=== PATIENT | female | born 1940 | race Caucasian/White ===

== ENCOUNTER → 2017-07-06 | Outpatient (CLI) | payer OTHER ==
[~2017-07-06] MED LIST: ATV5 PO; ESCI10TA17 PO; PRLSRUNK PO
[2017-07-06 13:07] LABS: BLOOD UREA NITROGEN 15 mg/dl (7-18); CALCIUM 9.4 mg/dl (8.5-10.1); CARBON DIOXIDE 31 mmol/L (21-32); CHLORIDE 103 mmol/L (98-107); CHOLESTEROL 184 mg/dl (0-200); CREATININE 0.87 mg/dl (0.60-1.20); GLUCOSE 100 mg/dl (70-99); POTASSIUM 4.2 mmol/L (3.5-5.1); SODIUM 139 mmol/L (136-145)
[2017-07-06 13:11] LABS: HDL CHOLESTEROL 46 mg/dl; LDL CHOLESTEROL CALCULATED 100 mg/dl; TRIGLYCERIDES 189 mg/dl (0-150); VERY LOW DENSITY LIPOPROT CALC 38 mg/dl
== END | disposition home or self-care (01) ==
LOC: C.LABPVFM 07:55
PROVIDERS: ATTEND Nurse Practitioner
DX: E78.5 Hyperlipidemia, unspecified (principal); I25.10 Atherosclerotic heart disease of native coronary artery without angina pectoris; E55.9 Vitamin D deficiency, unspecified

== ENCOUNTER → 2018-02-12 | Outpatient (CLI) | payer OTHER ==
[2018-02-12 17:32] LABS: BLOOD UREA NITROGEN 17 mg/dl (7-18); CALCIUM 9.2 mg/dl (8.5-10.1); CARBON DIOXIDE 31 mmol/L (21-32); CREATININE 0.95 mg/dl (0.60-1.20); GLUCOSE 122 mg/dl (70-99); POTASSIUM 3.9 mmol/L (3.5-5.1); SODIUM 137 mmol/L (136-145)
== END | disposition home or self-care (01) ==
LOC: C.LABPVFM 14:18
PROVIDERS: ATTEND Nurse Practitioner
DX: E55.9 Vitamin D deficiency, unspecified (principal); I25.10 Atherosclerotic heart disease of native coronary artery without angina pectoris

== ENCOUNTER 2019-12-19 17:17 | Observation (INO) ==
[2019-12-19] MEDS ORDERED: SODIUM CHLORIDE 0.9% 500 ML IV ONE (18:10)
--- NOTE | 2019-12-19 18:55 | XRay Report ---
SINGLE VIEW CHEST CLINICAL HISTORY: Strokelike symptoms. FINDINGS: An AP, portable, upright chest radiograph is compared to study dated 10/11/2009. The examina tion is degraded by portable technique, apical lordotic positioning, and patient rotation. The heart is top normal for projection noting atherosclerotic calcification of the thoracic aorta. The pulmonar y vasculature is noncongested. There is bibasilar scarring/atelectasis. No airspace consolidation or large pleural effusion is identified. A large calcified granuloma in the left lung is unchanged from previous. No pneumothorax is seen. The skeletal structures are osteopenic. The bony thorax is grossly intact. IMPRESSION: No active disease in the chest. ACT 112: Negative or not required by law. Electronically signed by: Tristan Lara M.D. 12/19/2019 6:54 PM
[2019-12-19 19:15] LABS: Basophils # (auto) 0.03 K/uL (0-0.2); Basophils % (auto) 0.4 %; Eosinophils # (auto) 0.12 K/uL (0-0.5); Eosinophils % (auto) 1.7 %; Hematocrit (blood only) 41.5 % (37-47); Hemoglobin 13.8 g/dL (12.0-16.0); Immature Granulocytes # (auto) 0.01 K/uL (0.00-0.02); Immature Granulocytes % (auto) 0.1 %; Lymphocytes # (auto) 2.31 K/uL (1.2-3.4); Lymphocytes % (auto) 31.9 %; Mean Corpuscular Hemoglobin 29.6 pg (25-34); Mean Corpuscular Hgb Conc 33.3 g/dL (32-36); Mean Corpuscular Volume 89.1 fL (80-100); Mean Platelet Volume 10.4 fL (7.4-10.4); Monocytes # (auto) 0.58 K/uL (0.11-0.59); Neutrophils # (auto) 4.19 K/uL (1.4-6.5); Neutrophils % (auto) 57.9 %; Platelet Count 264 K/uL (130-400); RDW Coefficient of Variation 12.9 % (11.5-14.5); RDW Standard Deviation 41.3 fL (36.4-46.3); Red Blood Count 4.66 M/uL (4.2-5.4); White Blood Count 7.24 K/uL (4.8-10.8)
[2019-12-19 19:25] LABS: INR 1.1 (0.9-1.1); Partial Thromboplastin Ratio 0.9; Partial Thromboplastin Time 23.8 Seconds (21.0-31.0); Prothrombin Time 10.9 Seconds (9.0-12.0)
[2019-12-19 19:33] LABS: Alanine Aminotransferase 25 U/L (12-78); Albumin Level 3.9 gm/dl (3.4-5.0); Aspartate Aminotransferase 15 U/L (15-37); BUN Creatinine Ratio 17.2 (10-20); Blood Urea Nitrogen 14 mg/dl (7-18); C Reactive Protein < 0.29 mg/dl (0-0.29); Calcium 9.3 mg/dl (8.5-10.1); Carbon Dioxide 28 mmol/L (21-32); Chloride 107 mmol/L (98-107); Creatinine Clr Calc Pharmacy 45.6 ml/min; Est GFR (African American) 80.1; Est GFR (Non-African American) 69.1; Glucose 122 mg/dl (70-99); Magnesium 2.2 mg/dl (1.8-2.4); Potassium 3.7 mmol/L (3.5-5.1); Sodium 141 mmol/L (136-145)
[2019-12-19 19:44] LABS: Albumin Globulin Ratio 1.1 (0.9-2); Alkaline Phosphatase 77 U/L (45-117); Bilirubin,Total 0.5 mg/dl (0.2-1); Globulin 3.7 gm/dl (2.5-4.0); Total Protein 7.6 gm/dl (6.4-8.2); Troponin I < 0.015 ng/ml (0-0.045)
[2019-12-19] MEDS ORDERED: OPTIRAY 320 125ml IV PRN (20:00)
--- NOTE | 2019-12-19 20:23 | CT Scan Report ---
UNENHANCED CT OF THE BRAIN; CT ANGIOGRAM OF THE BRAIN; CT ANGIOGRAM OF THE NECK CLINICAL HISTORY: Strokelike symptoms. Blurry vision in the right eye. COMPARISON STUDY: No priors. TECHNIQUE: Unenhanced axial CT scan of the brain is performed. Subsequently, following the IV adminis tration of 119 of [address] [address], CT angiogram of the head and neck was performed from the aortic arch t o the vertex. Images are reviewed in the axial, sagittal, and coronal planes. 3-D MIPS images are cre ated and assessed. IV contrast was administered without complication. All measurements were calculate d based on NASCET criteria. A dose lowering technique was utilized adhering to the principles of ALA RA. The CT angiogram the neck is degraded by motion artifact. CT DOSE: 987.07 mGy.cm FINDINGS: Brain parenchyma: There is age-related involutional change noting moderate patchy subcortical and per iventricular microangiopathic disease. There is no hemorrhage, mass effect, or evidence of acute terr itorial ischemia by CT criteria. There is no evidence of enhancing mass lesion on the angiogram phase images. The ventricles, sulci, and cisterns are prominent secondary to involutional change. Hawkins-whi te matter differentiation is preserved. No extra-axial fluid collection is seen. Thoracic aorta: There is atherosclerotic calcification of the thoracic aorta. Visualized portions of the thoracic aorta are normal in caliber. The aortic arch demonstrates standard 3-vessel anatomy. Right carotid arterial system: The right common carotid artery is widely patent, as are the internal and external carotid arteries. Atherosclerotic plaque is noted in the carotid bulb. Left carotid arterial system: The left common carotid artery is widely patent, as are the left technical support intern al and external carotid arteries. Atherosclerotic plaque is noted in the carotid bulb. Vertebral arteries: There is moderate focal stenosis at the origin of the left vertebral artery. The vertebral arteries are otherwise widely patent bilaterally and codominant. No dissection is seen. Subclavian arteries: Widely patent bilaterally. Intracranial vasculature: There is atherosclerotic calcification of the cavernous carotid arteries. T he internal carotid arteries are patent at the skull base, as are the anterior and middle cerebral ar teries bilaterally. There is moderate focal stenosis of the M2 segment of the left middle cerebral ar charles. The vertebrobasilar system and posterior cerebral arteries are widely patent. The vertebral art eries are codominant. There is no aneurysm or focal vessel cut off seen throughout the intracranial c irculation. Jugular veins: Patent bilaterally. Dural sinuses: Patent. Lung apices: Partially visualized upper lobe lung parenchyma appears clear. Soft tissues: The visualized pharyngeal soft tissues are normal in appearance noting angiographic pha se technique. The oropharyngeal airway appears widely patent. The salivary and thyroid glands are nor mal in appearance. No cervical lymphadenopathy is seen. Skeletal structures: The skeletal structures are osteopenic. The calvarium appears intact. The cervic al spine is maintained noting multilevel spondylosis. No lytic or blastic lesion is seen. Sinuses and mastoids: The paranasal sinuses are clear. There are right larger than left mastoid effus ions. IMPRESSION: 1. There is no hemorrhage, mass effect, or evidence of acute territorial ischemia by CT criteria. 2. 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 3. Otherwise unremarkable CT angiogram of the brain. 4. There is moderate focal stenosis at the origin of the left vertebral artery. 5. Otherwise unremarkable CT angiogram of the neck. ACT 112: Negative or not required by law. Electronically signed by: Tristan Lara M.D. 12/19/2019 8:22 PM
--- NOTE | 2019-12-19 20:28 | Emergency Department Note ---
Entered by Nick Cordova acting as a scribe for Que Bauer MD History of Present Illness General Chief complaint: Visual Disturbance Stated complaint: TESTS FOR RETINAL ARTERY OCCLUSION,SENT DR DORADO Time Seen by Provider: 12/19/19 17:41 Source: patient History of Present Illness Onset (ago): day(s) 4 Location: eyes (right eye visual disturbance) Pain Consistency: + other (worsening) Quality: + other (blurriness and spotting) Associated symptoms: + denies other symptoms (abdominal pain) The patient is a 79 year old F who presents to the Emergency Room with complaint s of a worsening right eye visual disturbance that started 4 days ago. The patient states that she has a history of eye issues. 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 She states that she still has trouble with her left eye. She notes that since 4 days ago, she has been experiencing blurriness and spotting in her right eye. She adds that due to her symptoms, her bead flipper referred her to a retinal specialist. She notes that the retinal specialist diagnosed her with a retinal artery occlusion and referred her to the ED for further testing. She denies currently experiencing abdominal pain. She notes that she is not currently on any blood thinning medications. I reviewed the note from Dr. Campbell and have copied his impression/plan here. Dr. Campbell states: I have explained to the patient that they have a central retinal artery occlusion, which is a blockage in the main artery supplying blood to the retina. Disease discussed in detail, including guarded fci visual prognosis. Patient aware of need for serial follow up to monitor for ocular neovascularization. Need for optimization of cardiovascular risk factors. We discussed that although there is no treatment for this condition, the patient is at higher risk for heart attack and stroke and therefore need an urgent embolic work-up to include at least an EKG, echocardiogram, and carotid ultrasound. Discussed with PCP will send patient directly to [facility] for evaluation. Discussed need for serial follow-up to monitor for ocular neovascularization. Will check ESR/CRP to rule out GCA. No treatment at this time will help vision. Observation recommended. Home Medications Home Medications Medication Instructions Recorded Confirmed Type lorazepam 0.5 mg tablet 0.5 mg BUCCAL Q6H PRN tab 09/09/19 12/16/19 History Prilosec OTC 20 mg PO BID 12/19/19 12/19/19 History aspirin [Aspirin Low Dose] 81 mg PO DAILY 12/19/19 12/19/19 History escitalopram oxalate 5 mg PO DAILY 12/19/19 History metoprolol tartrate 25 mg PO DAILY 12/19/19 12/19/19 History atorvastatin 40 mg PO DAILY #30 tab 12/20/19 Rx Allergies Allergy/AdvReac Type Severity Reaction Status Date / Time No Known Allergies Allergy Unknown Verified 12/16/19 14:31 Past Med/Surg History Medical History Acute otitis media Acute sinusitis Allergic rhinitis (Chronic) Anxiety (Chronic) Coronary artery disease (Chronic) Dizziness Dyslipidemia (Chronic) Ear pain Elevated blood-pressure reading without diagnosis of hypertension IBS (irritable bowel syndrome) (Chronic) Neck pain Ruptured tympanic membrane URI (upper respiratory infection) Vitamin D deficiency (Chronic) Surgical History History of hysterectomy Family History Daughter Breast cancer Mother Liver cancer Other Ulcerative colitis Denies family history of Ovarian cancer Prostate cancer Myocardial infarction Colorectal cancer Social History Preferred Language: Finnish Communication Ability: Effective Pulmonologist/Intensivist Required: No Beliefs That Will Affect Care: None marital status: Current Living Situation: Family current occupational status: retired Feels Safe at Home: Yes Smoking Status: Unknown if ever smoked Hx Alcohol Use: No Hx Substance Use: No caffeine: No Dental Care, Regularly: Yes Physical Activity Frequency: 5-6 Times per Week Seatbelt Use: always Sunscreen Use: No Review of Systems See HPI for pertinent positives & negatives. and A total of 10 systems reviewed and were otherwise negative Physical Exam Vital Signs Vital Signs - 24 hr 12/19/19 17:25 12/19/19 19:10 12/19/19 19:11 Temperature 36.6 C Temperature Source Oral Pulse Rate 79 69 Pulse Rate [Apical] 69 Pulse Rate from SpO2 Sensor 69 Pulse Rhythm Regular Pulse Strength Normal Respiratory Rate 20 14 20 Respiratory Effort / Characteristics Non-Labored Spontaneous Non-Labored Spontaneous Respiratory Depth Normal Normal Respiratory Pattern Regular Regular Blood Pressure 210/86 H 182/90 H Blood Pressure [Right Arm] 182/90 H Blood Pressure Mean 127 131 Blood Pressure Mean [Right Arm] 120 Blood Pressure Position Sitting Pulse Oximetry 99 99 99 Oxygen Delivery Method Room Air Room Air Sepsis Recent Fever Within 48 Hours No Sepsis New/Unexplained Change in Mental Status No Sepsis Action Taken by Nursing No Action Required 12/19/19 19:12 12/19/19 19:30 12/19/19 19:31 Temperature Temperature Source Pulse Rate 70 76 79 Pulse Rate [Apical] Pulse Rate from SpO2 Sensor 71 75 80 Pulse Rhythm Pulse Strength Respiratory Rate 13 21 17 Respiratory Effort / Characteristics Respiratory Depth Respiratory Pattern Blood Pressure 205/93 H Blood Pressure [Right Arm] Blood Pressure Mean 154 Blood Pressure Mean [Right Arm] Blood Pressure Position Pulse Oximetry 99 100 100 Oxygen Delivery Method Sepsis Recent Fever Within 48 Hours Sepsis New/Unexplained Change in Mental Status Sepsis Action Taken by Nursing 12/19/19 19:33 12/19/19 20:11 12/19/19 20:12 Temperature Temperature Source Pulse Rate 75 79 79 Pulse Rate [Apical] Pulse Rate from SpO2 Sensor 73 Pulse Rhythm Pulse Strength Respiratory Rate 18 19 18 Respiratory Effort / Characteristics Respiratory Depth Respiratory Pattern Blood Pressure 210/86 H 209/103 H Blood Pressure [Right Arm] Blood Pressure Mean 138 151 Blood Pressure Mean [Right Arm] Blood Pressure Position Pulse Oximetry 100 Oxygen Delivery Method Sepsis Recent Fever Within 48 Hours Sepsis New/Unexplained Change in Mental Status Sepsis Action Taken by Nursing 12/19/19 20:13 12/19/19 20:27 12/19/19 20:30 Temperature Temperature Source Pulse Rate 78 82 85 Pulse Rate [Apical] Pulse Rate from SpO2 Sensor 79 84 Pulse Rhythm Pulse Strength Respiratory Rate 19 18 22 Respiratory Effort / Characteristics Respiratory Depth Respiratory Pattern Blood Pressure 210/90 H Blood Pressure [Right Arm] Blood Pressure Mean 133 Blood Pressure Mean [Right Arm] Blood Pressure Position Pulse Oximetry 96 98 Oxygen Delivery Method Sepsis Recent Fever Within 48 Hours Sepsis New/Unexplained Change in Mental Status Sepsis Action Taken by Nursing 12/19/19 20:31 12/19/19 20:32 12/19/19 21:00 Temperature Temperature Source Pulse Rate 83 79 72 Pulse Rate [Apical] Pulse Rate from SpO2 Sensor 83 80 72 Pulse Rhythm Pulse Strength Respiratory Rate 17 18 11 L Respiratory Effort / Characteristics Respiratory Depth Respiratory Pattern Blood Pressure 192/108 H Blood Pressure [Right Arm] Blood Pressure Mean 138 Blood Pressure Mean [Right Arm] Blood Pressure Position Pulse Oximetry 97 98 98 Oxygen Delivery Method Sepsis Recent Fever Within 48 Hours Sepsis New/Unexplained Change in Mental Status Sepsis Action Taken by Nursing 12/19/19 21:01 12/19/19 21:02 12/19/19 21:30 Temperature Temperature Source Pulse Rate 74 70 74 Pulse Rate [Apical] Pulse Rate from SpO2 Sensor 73 71 73 Pulse Rhythm Pulse Strength Respiratory Rate 12 14 14 Respiratory Effort / Characteristics Respiratory Depth Respiratory Pattern Blood Pressure 169/94 H Blood Pressure [Right Arm] Blood Pressure Mean 144 Blood Pressure Mean [Right Arm] Blood Pressure Position Pulse Oximetry 99 98 97 Oxygen Delivery Method Sepsis Recent Fever Within 48 Hours Sepsis New/Unexplained Change in Mental Status Sepsis Action Taken by Nursing 12/19/19 21:31 12/19/19 21:32 12/19/19 22:06 Temperature Temperature Source Pulse Rate 72 73 Pulse Rate [Apical] Pulse Rate from SpO2 Sensor 73 72 81 Pulse Rhythm Pulse Strength Respiratory Rate 14 12 Respiratory Effort / Characteristics Respiratory Depth Respiratory Pattern Blood Pressure 195/108 H Blood Pressure [Right Arm] Blood Pressure Mean 164 Blood Pressure Mean [Right Arm] Blood Pressure Position Pulse Oximetry 98 98 96 Oxygen Delivery Method Sepsis Recent Fever Within 48 Hours Sepsis New/Unexplained Change in Mental Status Sepsis Action Taken by Nursing 12/19/19 22:09 12/19/19 22:10 12/19/19 22:30 Temperature Temperature Source Pulse Rate 86 81 73 Pulse Rate [Apical] Pulse Rate from SpO2 Sensor 83 82 72 Pulse Rhythm Pulse Strength Respiratory Rate 20 19 20 Respiratory Effort / Characteristics Respiratory Depth Respiratory Pattern Blood Pressure 137/103 H Blood Pressure [Right Arm] Blood Pressure Mean 119 Blood Pressure Mean [Right Arm] Blood Pressure Position Pulse Oximetry 97 97 100 Oxygen Delivery Method Sepsis Recent Fever Within 48 Hours Sepsis New/Unexplained Change in Mental Status Sepsis Action Taken by Nursing 12/19/19 22:32 12/19/19 22:33 12/19/19 23:00 Temperature Temperature Source Pulse Rate 72 71 66 Pulse Rate [Apical] Pulse Rate from SpO2 Sensor 72 74 66 Pulse Rhythm Pulse Strength Respiratory Rate 18 14 16 Respiratory Effort / Characteristics Respiratory Depth Respiratory Pattern Blood Pressure 175/100 H Blood Pressure [Right Arm] Blood Pressure Mean 140 Blood Pressure Mean [Right Arm] Blood Pressure Position Pulse Oximetry 99 96 99 Oxygen Delivery Method Sepsis Recent Fever Within 48 Hours Sepsis New/Unexplained Change in Mental Status Sepsis Action Taken by Nursing 12/19/19 23:02 Temperature Temperature Source Pulse Rate 73 Pulse Rate [Apical] Pulse Rate from SpO2 Sensor 74 Pulse Rhythm Pulse Strength Respiratory Rate 23 Respiratory Effort / Characteristics Respiratory Depth Respiratory Pattern Blood Pressure 220/97 H Blood Pressure [Right Arm] Blood Pressure Mean 135 Blood Pressure Mean [Right Arm] Blood Pressure Position Pulse Oximetry 97 Oxygen Delivery Method Sepsis Recent Fever Within 48 Hours Sepsis New/Unexplained Change in Mental Status Sepsis Action Taken by Nursing GENERAL: Awake, alert, well-appearing, in no distress HENT: Normocephalic, atraumatic. Oropharynx with dry mucous membranes and otherwise unremarkable. EYES: Normal conjunctiva. Sclera non-icteric. EOMI. No nystamgus. PEARRL. Gross periphereal vision intact. NECK: Supple. No nuchal rigidity. FROM. No JVD. RESPIRATORY: CTAB CARDIAC: Regular rate, normal rhythm. Extremities warm and well perfused. Pulses equal. ABDOMEN: Soft, non-distended. No tenderness to palpation. No rebound or guarding. No masses. RECTAL: Deferred. MUSCULOSKELETAL: Chest examination reveals no tenderness. The back is symmetrical on inspection without obvious abnormality. There is no CVA tenderness to palpation. No joint edema. LOWER EXTREMITIES: Calves are equal size bilaterally and non-tender. No edema. No discoloration. NEURO: Normal sensorium. No sensory or motor deficits noted. 5/5 strength and SILT x4 extremities. Cerebellar function intact, including finger to nose, alternating palms, heel to abad. Steady gait. SKIN: No rash or jaundice noted. Course Course 1754: The patient was evaluated in room C1B. A complete history and physical exam was performed. 1819: I discussed at length, with the patient, about the plan for admission. 2041: I reviewed the patient's case with Dr. Xiao, [facility] Hospitalist. He will evaluate the patient for further management. Administered Medications Discontinued Medications Aspirin (Ecotrin Ectab) 81 mg PO DAILY [facility] Stop: 01/19/20 08:59 Last Admin: 12/20/19 09:17 Dose: 81 mg Documented by: [id number] Enoxaparin Sodium (Lovenox) 40 mg SQ Q24H KHALIF Stop: 01/19/20 07:59 Last Admin: 12/20/19 09:14 Dose: Not Given Documented by: [id number] Hydralazine HCl (Apresoline) 10 mg PO ONE ONE Stop: 12/20/19 00:37 Last Admin: 12/20/19 00:54 Dose: 10 mg Documented by: [id number] Hydralazine HCl (Hydralazine Hcl) 10 mg IV Q4H PRN PRN Reason: Systolic BP > 160 or diastolic >95 Stop: 01/19/20 06:01 Last Admin: 12/20/19 06:12 Dose: 10 mg Documented by: [id number] Sodium Chloride (Nss) 500 mls @ 999 mls/hr IV .Q31M ONE Stop: 12/19/19 18:40 Last Infusion: 12/19/19 19:37 Dose: 0 mls/hr Documented by: [id number] Admin: 12/19/19 19:10 Dose: 999 mls/hr Documented by: [id number] Ioversol (Optiray 320 125ml) 119 ml IV ONCE PRN PRN Reason: Interaction Checking Stop: 12/23/19 19:59 Last Admin: 12/19/19 20:01 Dose: 119 ml Documented by: [id number] Metoprolol Tartrate (Lopressor) 25 mg PO DAILY [facility] Stop: 01/19/20 08:59 Last Admin: 12/20/19 09:15 Dose: Not Given Documented by: [id number] Pantoprazole Sodium (Protonix) 40 mg PO BID [facility] Stop: 01/19/20 08:59 Last Admin: 12/20/19 09:17 Dose: Not Given Documented by: [id number] Simvastatin (Zocor) 20 mg PO DAILY KHALIF Stop: 01/19/20 08:59 Last Admin: 12/20/19 09:17 Dose: 20 mg Documented by: [id number] Medical Decision Making Differential Diagnosis Differential Diagnosis includes but is not limited to dehydration, stroke, anemia, hypoglycemia, hyponatremia, hypernatremia, urinary tract infection, pneumonia, bronchitis, sepsis, gastroenteritis, additional abdominal pathology, metabolic abnormalities and infections. Medical Records Attestation: I reviewed the patient's medical records. Home Medications Current Medication List: was personally reviewed by me Laboratory Data Attestation: I reviewed the patient's lab results. Result diagrams: 12/20/19 06:39 12/20/19 06:39 Lab Results 12/19/19 12/19/19 12/19/19 Range/Units 19:05 19:05 19:05 WBC 7.24 (4.8-10.8) K/uL RBC 4.66 (4.2-5.4) M/uL Hgb 13.8 (12.0-16.0) g/dL Hct 41.5 (37-47) % MCV 89.1 (80-100) fL MCH 29.6 (25-34) pg MCHC 33.3 (32-36) g/dL RDW Std Deviation 41.3 (36.4-46.3) fL RDW Coeff of Sampson 12.9 (11.5-14.5) % Plt Count 264 (130-400) K/uL MPV 10.4 (7.4-10.4) fL Immature Gran % (Auto) 0.1 % Neut % (Auto) 57.9 % Lymph % (Auto) 31.9 % [place] % (Auto) 8.0 % Eos % (Auto) 1.7 % Baso % (Auto) 0.4 % Immature Gran # (Auto) 0.01 (0.00-0.02) K/uL Neut # (Auto) 4.19 (1.4-6.5) K/uL Lymph # (Auto) 2.31 (1.2-3.4) K/uL [place] # (Auto) 0.58 (0.11-0.59) K/uL Eos # (Auto) 0.12 (0-0.5) K/uL Baso # (Auto) 0.03 (0-0.2) K/uL ESR (0-21) mm/hr PT 10.9 (9.0-12.0) Seconds INR 1.1 (0.9-1.1) APTT 23.8 (21.0-31.0) Seconds PTT Ratio 0.9 Sodium 141 (136-145) mmol/L Potassium 3.7 (3.5-5.1) mmol/L Chloride 107 (98-107) mmol/L Carbon Dioxide 28 (21-32) mmol/L Anion Gap 6.0 (3-11) BUN 14 (7-18) mg/dl Creatinine 0.81 (0.6-1.2) mg/dl Est Cr Clr Drug Dosing 45.6 ml/min Est GFR ( Amer) 80.1 Est GFR (Non-Af Amer) 69.1 BUN/Creatinine Ratio 17.2 (10-20) Glucose 122 H (70-99) mg/dl Calcium 9.3 (8.5-10.1) mg/dl Magnesium 2.2 (1.8-2.4) mg/dl Total Bilirubin 0.5 (0.2-1) mg/dl AST 15 (15-37) U/L ALT 25 (12-78) U/L Alkaline Phosphatase 77 (45-117) U/L Troponin I < 0.015 (0-0.045) ng/ml C-Reactive Protein < 0.29 (0-0.29) mg/dl Total Protein 7.6 (6.4-8.2) gm/dl Albumin 3.9 (3.4-5.0) gm/dl Globulin 3.7 (2.5-4.0) gm/dl Albumin/Globulin Ratio 1.1 (0.9-2) TSH 1.670 (0.300-4.500) uIu/ml 12/19/19 Range/Units 19:05 WBC (4.8-10.8) K/uL RBC (4.2-5.4) M/uL Hgb (12.0-16.0) g/dL Hct (37-47) % MCV (80-100) fL MCH (25-34) pg MCHC (32-36) g/dL RDW Std Deviation (36.4-46.3) fL RDW Coeff of Sampson (11.5-14.5) % Plt Count (130-400) K/uL MPV (7.4-10.4) fL Immature Gran % (Auto) % Neut % (Auto) % Lymph % (Auto) % [place] % (Auto) % Eos % (Auto) % Baso % (Auto) % Immature Gran # (Auto) (0.00-0.02) K/uL Neut # (Auto) (1.4-6.5) K/uL Lymph # (Auto) (1.2-3.4) K/uL [place] # (Auto) (0.11-0.59) K/uL Eos # (Auto) (0-0.5) K/uL Baso # (Auto) (0-0.2) K/uL ESR 17 (0-21) mm/hr PT (9.0-12.0) Seconds INR (0.9-1.1) APTT (21.0-31.0) Seconds PTT Ratio Sodium (136-145) mmol/L Potassium (3.5-5.1) mmol/L Chloride (98-107) mmol/L Carbon Dioxide (21-32) mmol/L Anion Gap (3-11) BUN (7-18) mg/dl Creatinine (0.6-1.2) mg/dl Est Cr Clr Drug Dosing ml/min Est GFR ( Amer) Est GFR (Non-Af Amer) BUN/Creatinine Ratio (10-20) Glucose (70-99) mg/dl Calcium (8.5-10.1) mg/dl Magnesium (1.8-2.4) mg/dl Total Bilirubin (0.2-1) mg/dl AST (15-37) U/L ALT (12-78) U/L Alkaline Phosphatase (45-117) U/L Troponin I (0-0.045) ng/ml C-Reactive Protein (0-0.29) mg/dl Total Protein (6.4-8.2) gm/dl Albumin (3.4-5.0) gm/dl Globulin (2.5-4.0) gm/dl Albumin/Globulin Ratio (0.9-2) TSH (0.300-4.500) uIu/ml Imaging Data Radiologist's Impression: Radiology results as stated below per my review and the radiologist's interpretation: UNENHANCED CT OF THE BRAIN; CT ANGIOGRAM OF THE BRAIN; CT ANGIOGRAM OF THE NECK CLINICAL HISTORY: Strokelike symptoms. Blurry vision in the right eye. COMPARISON STUDY: No priors. TECHNIQUE: Unenhanced axial CT scan of the brain is performed. Subsequently, following the IV administration of 119 of Optiray 320, CT angiogram of the head and neck was performed from the aortic arch to the vertex. Images are reviewed in the axial, sagittal, and coronal planes. 3-D MIPS images are created and assessed. IV contrast was administered without complication. All measurements were calculated based on NASCET criteria. A dose lowering technique was utilized adhering to the principles of ALARA. The CT angiogram the neck is degraded by motion artifact. CT DOSE: 987.07 mGy.cm FINDINGS: Brain parenchyma: There is age-related involutional change noting moderate patchy subcortical and periventricular microangiopathic disease. There is no hem orrhage, mass effect, or evidence of acute territorial ischemia by CT criteria. There is no evidence of enhancing mass lesion on the angiogram phase images. The ventricles, sulci, and cisterns are prominent secondary to involutional change. Hawkins-white matter differentiation is preserved. No extra-axial fluid collection is seen. Thoracic aorta: There is atherosclerotic calcification of the thoracic aorta. Visualized portions of the thoracic aorta are normal in caliber. The aortic arch demonstrates standard 3-vessel anatomy. Right carotid arterial system: The right common carotid artery is widely patent, as are the internal and external carotid arteries. Atherosclerotic plaque is noted in the carotid bulb. Left carotid arterial system: The left common carotid artery is widely patent, as are the left internal and external carotid arteries. Atherosclerotic plaque is noted in the carotid bulb. Vertebral arteries: There is moderate focal stenosis at the origin of the left vertebral artery. The vertebral arteries are otherwise widely patent bilaterally and codominant. No dissection is seen. Subclavian arteries: Widely patent bilaterally. Intracranial vasculature: There is atherosclerotic calcification of the cavernous carotid arteries. The internal carotid arteries are patent at the skull base, as are the anterior and middle cerebral arteries bilaterally. 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 The vertebrobasilar system and posterior cerebral arteries are widely patent. The vertebral arteries are codominant. There is no aneurysm or focal vessel cut off seen throughout the intracranial circulation. Jugular veins: Patent bilaterally. Dural sinuses: Patent. Lung apices: Partially visualized upper lobe lung parenchyma appears clear. Soft tissues: The visualized pharyngeal soft tissues are normal in appearance noting angiographic phase technique. The oropharyngeal airway appears widely patent. The salivary and thyroid glands are normal in appearance. No cervical lymphadenopathy is seen. Skeletal structures: The skeletal structures are osteopenic. The calvarium appears intact. The cervical spine is maintained noting multilevel spondylosis. No lytic or blastic lesion is seen. Sinuses and mastoids: The paranasal sinuses are clear. There are right larger than left mastoid effusions. IMPRESSION: 1. There is no hemorrhage, mass effect, or evidence of acute territorial ischemia by CT criteria. 2. 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 3. Otherwise unremarkable CT angiogram of the brain. 4. There is moderate focal stenosis at the origin of the left vertebral artery. 5. Otherwise unremarkable CT angiogram of the neck. ACT 112: Negative or not required by law. Electronically signed by: Tristan Lara M.D. 12/19/2019 8:[address] OF THE BRAIN; CT ANGIOGRAM OF THE BRAIN; CT ANGIOGRAM OF THE NECK CLINICAL HISTORY: Strokelike symptoms. Blurry vision in the right eye. COMPARISON STUDY: No priors. TECHNIQUE: Unenhanced axial CT scan of the brain is performed. Subsequently, following the IV administration of 119 of Optiray 320, CT angiogram of the head and neck was performed from the aortic arch to the vertex. Images are reviewed in the axial, sagittal, and coronal planes. 3-D MIPS images are created and assessed. IV contrast was administered without complication. All measurements were calculated based on NASCET criteria. A dose lowering technique was utilized adhering to the principles of ALARA. The CT angiogram the neck is degraded by motion artifact. CT DOSE: 987.07 mGy.cm FINDINGS: Brain parenchyma: There is age-related involutional change noting moderate patchy subcortical and periventricular microangiopathic disease. There is no hemorrhage, mass effect, or evidence of acute territorial ischemia by CT criteria. There is no evidence of enhancing mass lesion on the angiogram phase images. The ventricles, sulci, and cisterns are prominent secondary to involutional change. Hawkins-white matter differentiation is preserved. No extra- axial fluid collection is seen. Thoracic aorta: There is atherosclerotic calcification of the thoracic aorta. Visualized portions of the thoracic aorta are normal in caliber. The aortic arch demonstrates standard 3-vessel anatomy. Right carotid arterial system: The right common carotid artery is widely patent, as are the internal and external carotid arteries. Atherosclerotic plaque is noted in the carotid bulb. Left carotid arterial system: The left common carotid artery is widely patent, as are the left internal and external carotid arteries. Atherosclerotic plaque is noted in the carotid bulb. Vertebral arteries: There is moderate focal stenosis at the origin of the left vertebral artery. The vertebral arteries are otherwise widely patent bilaterally and codominant. No dissection is seen. Subclavian arteries: Widely patent bilaterally. Intracranial vasculature: There is atherosclerotic calcification of the cavernous carotid arteries. The internal carotid arteries are patent at the skull base, as are the anterior and middle cerebral arteries bilaterally. 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 The vertebrobasilar system and posterior cerebral arteries are widely patent. Th e vertebral arteries are codominant. There is no aneurysm or focal vessel cut off seen throughout the intracranial circulation. Jugular veins: Patent bilaterally. Dural sinuses: Patent. Lung apices: Partially visualized upper lobe lung parenchyma appears clear. Soft tissues: The visualized pharyngeal soft tissues are normal in appearance noting angiographic phase technique. The oropharyngeal airway appears widely patent. The salivary and thyroid glands are normal in appearance. No cervical l ymphadenopathy is seen. Skeletal structures: The skeletal structures are osteopenic. The calvarium appears intact. The cervical spine is maintained noting multilevel spondylosis. No lytic or blastic lesion is seen. Sinuses and mastoids: The paranasal sinuses are clear. There are right larger than left mastoid effusions. IMPRESSION: 1. There is no hemorrhage, mass effect, or evidence of acute territorial ischemia by CT criteria. 2. 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 3. Otherwise unremarkable CT angiogram of the brain. 4. There is moderate focal stenosis at the origin of the left vertebral artery. 5. Otherwise unremarkable CT angiogram of the neck. ACT 112: Negative or not required by law. Electronically signed by: Tristan Lara M.D. 12/19/2019 8:22 PM UNENHANCED CT OF THE BRAIN; CT ANGIOGRAM OF THE BRAIN; CT ANGIOGRAM OF THE NECK CLINICAL HISTORY: Strokelike symptoms. Blurry vision in the right eye. COMPARISON STUDY: No priors. TECHNIQUE: Unenhanced axial CT scan of the brain is performed. Subsequently, following the IV administration of 119 of Optiray 320, CT angiogram of the head and neck was performed from the aortic arch to the vertex. Images are reviewed in the axial, sagittal, and coronal planes. 3-D MIPS images are created and assessed. IV contrast was administered without complication. All measurements were calculated based on NASCET criteria. A dose lowering technique was utilized adhering to the principles of ALARA. The CT angiogram the neck is degraded by motion artifact. CT DOSE: 987.07 mGy.cm FINDINGS: Brain parenchyma: There is age-related involutional change noting moderate patchy subcortical and periventricular microangiopathic disease. There is no hemorrhage, mass effect, or evidence of acute territorial ischemia by CT criteria. There is no evidence of enhancing mass lesion on the angiogram phase images. The ventricles, sulci, and cisterns are prominent secondary to involutional change. Hawkins-white matter differentiation is preserved. No extra- axial fluid collection is seen. Thoracic aorta: There is atherosclerotic calcification of the thoracic aorta. Visualized portions of the thoracic aorta are normal in caliber. The aortic arch demonstrates standard 3-vessel anatomy. Right carotid arterial system: The right common carotid artery is widely patent, as are the internal and external carotid arteries. Atherosclerotic plaque is noted in the carotid bulb. Left carotid arterial system: The left common carotid artery is widely patent, as are the left internal and external carotid arteries. Atherosclerotic plaque is noted in the carotid bulb. Vertebral arteries: There is moderate focal stenosis at the origin of the left vertebral artery. The vertebral arteries are otherwise widely patent bilaterally and codominant. No dissection is seen. Subclavian arteries: Widely patent bilaterally. Intracranial vasculature: There is atherosclerotic calcification of the cavernous carotid arteries. The internal carotid arteries are patent at the skull base, as are the anterior and middle cerebral arteries bilaterally. 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 The vertebrobasilar system and posterior cerebral arteries are widely patent. The vertebral arteries are codominant. There is no aneurysm or focal vessel cut off seen throughout the intracranial circulation. Jugular veins: Patent bilaterally. Dural sinuses: Patent. Lung apices: Partially visualized upper lobe lung parenchyma appears clear. Soft tissues: The visualized pharyngeal soft tissues are normal in appearance noting angiographic phase technique. The oropharyngeal airway appears widely patent. The salivary and thyroid glands are normal in appearance. No cervical lymphadenopathy is seen. Skeletal structures: The skeletal structures are osteopenic. The calvarium appears intact. The cervical spine is maintained noting multilevel spondylosis. No lytic or blastic lesion is seen. Sinuses and mastoids: The paranasal sinuses are clear. There are right larger than left mastoid effusions. IMPRESSION: 1. There is no hemorrhage, mass effect, or evidence of acute territorial ischemia by CT criteria. 2. 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 3. Otherwise unremarkable CT angiogram of the brain. 4. There is moderate focal stenosis at the origin of the left vertebral artery. 5. Otherwise unremarkable CT angiogram of the neck. ACT 112: Negative or not required by law. Electronically signed by: Tristan Lara M.D. 12/19/2019 8:22 PM SINGLE VIEW CHEST CLINICAL HISTORY: Strokelike symptoms. FINDINGS: An AP, portable, upright chest radiograph is compared to study dated 10/11/2009. The examination is degraded by portable technique, apical lordotic positioning, and patient rotation. The heart is top normal for projection noting atherosclerotic calcification of the thoracic aorta. The pulmonary vasculature is noncongested. There is bibasilar scarring/atelectasis. No airspace consolidation or large pleural effusion is identified. A large calcified granuloma in the left lung is unchanged from previous. No pneumothorax is seen. The skeletal structures are osteopenic. The bony thorax is grossly intact. IMPRESSION: No active disease in the chest. ACT 112: Negative or not required by law. Electronically signed by: Tristan Lara M.D. 12/19/2019 6:54 PM ECG Data Attestation: I personally reviewed and interpreted this ECG as follows: Indication: + other (visual disturbance) Rate (beats per minute): 73 Rhythm: + normal sinus ECG [place]: + Normal ECG ST segments: + Nonspecific ST abnormalities; no ST depression and no ST elevation ECG Findings: + Other (non-specific T wave abnormality, QTc 475, QRS 90) Blood Pressure Blood Pressure Findings: Elevated blood pressure Blood Pressure Disposition: further management by hospitalist JERO Galloway The patient is a pleasant 79-year-old woman with a past medical history of self- described amaurosis fugax who presents emergency department for evaluation for cardioembolic disease in the setting of being diagnosed with a central retinal artery occlusion today at her retina specialist in [place] referred to the emergency department for cardiac testing including echo and carotid dopplers per HPI. On exam the patient is no acute distress, afebrile stable vital signs. She is otherwise neurologically intact. She reports intermittent blurred vision of her right eye. I did explain to the patient the extent of testing that her doctors wanted would be best performed with inpatient admission. She was agreeable with this. EKG without overt acute ischemia. Chest x-ray negative for acute process. Lab work was unremarkable. WBC, H/H and platelets within normal limits. Chemistry without acidosis. Electrolytes and LFTs unremarkable. Troponin negative/undetectable. CTA of the head and neck demonstrates moderate focal stenosis of the M2 segment of the left middle cerebral artery and moderate focal stenosis at the origin of the left vertebral artery. Otherwise, no abrupt large vessel cutoffs, ICH or ischemia. Case was discussed [place], [facility] [place], who will evaluate the patient for admission. Impression & Plan Central retinal artery occlusion, Cerebral vascular disease, Elevated blood- pressure reading without diagnosis of hypertension Discharge Plan Visit Data *Final* Discharge Date/Time: 12/20/19 00:16 Chief Complaint: Visual Disturbance Stated Complaint: TESTS FOR RETINAL ARTERY OCCLUSION,SENT DR DORADO ED Provider: Que Bauer Discharge Problem: Central retinal artery occlusion, Cerebral vascular disease, Elevated blood- pressure reading without diagnosis of hypertension Patient Disposition: Admitted As Inpatient Condition: Good Discharge Instructions Interventions: ED Discharge Assessment Last Done: 12/20/19 00:16 Discharge Problem: Central retinal artery occlusion Qualifiers: Laterality: right Qualified Code(s): H34.11 - Central retinal artery occlusion, right eye The scribe's documentation has been prepared under my direction and personally reviewed by me in its entirety. I confirm that the note above accurately reflec ts all work, treatment, procedures, and medical decision making performed by me.
--- NOTE | 2019-12-19 23:24 | History & Physical Report ---
Date of Service December 19, 2019 Assessment & Plan (1) Central retinal artery occlusion: Mrs. Charlton is a 79yo with a PMhx of hyperlipidemia, Anxiety and GERD who presented as a referral from her eye doctor in [place] to the ED for central artery retinal occlusion. Admitted for AM echo. Central artery retinal occlusion -Pt with no central vision in her right eye, peripheral vision appears intact -Head CT, neck CTA notes moderate focal stenosis of the left vertebral artery and M2 branch of left MCA. No mass or hemorrhage or ischemic changes -EKG with NSR, HR of 73, qtc of 475. -Echo pending- will be done in AM -fasting lipids ordered for AM for any acute changes; last noted 09/2019 within normal limits -Likely embolic, low concern for stroke -continue simvastatin 20mg daily--can consider switching to high intensity atorvastatin or rosuvastatin -continue home baby aspirin -will admit to med/surg to await echo which will be done in AM HTN -per patient BP usually within normal limits, since admission as high as 220/97 -states home metoprolol for Hx of palpitations -will give one time dose of hydralazine 10mg -continue home metoprolol 25mg daily -continue to monitor GERD -continue home omeprazole 20mg BID Anxiety -per pt no longer on medication Lorazepam -Has not been on Lexapro for years but at last office visit with PCP on 12/16 recommendation was to start 10mg. Has NOT started it yet. -However, last PCP note from 12/16 notes increasing lexapro to 10mg -Pt prefers to not start Lexapro here FEN/GI: heart healthy DVT prophylaxis: Lovenox SQ CODE STATUS: Full Dispo: Med/Surg until echo in AM History of Present Illness Primary Care Provider: KAIDEN Velasco Pt states she presented to the ED after seeing an speech and language specialist in [place] today who diagnosed her with central artery retinal occlusion, and recommended she go the ED for workup. States she had been having periodic eye blurriness but 2 days ago, her right eye got darker. Denies any associated headaches, chest pain, SOB or palpitations. States she has a history of anxiety and associated palpitations for which she is on metoprolol but no hx of HTN. Denies = cough, runny nose, sore throat, dizziness, weakness, abdominal pain, diarrhea or constipation, swelling in hands or feet or numbness or tingling anywhere. PMHx: GERD, Anxiety, HLD Allergies: NKDA Fam Hx: sister with Hx of stroke Social Hx: . Never smoker, no alcohol or recreational drug use Allergies Allergy/AdvReac Type Severity Reaction Status Date / Time No Known Allergies Allergy Unknown Verified 12/16/19 14:31 Home Medications Home Medications Medication Instructions Recorded Confirmed Type lorazepam 0.5 mg tablet 0.5 mg BUCCAL Q6H PRN tab 09/09/19 12/16/19 History simvastatin 20 mg tablet 20 mg PO DAILY 12/16/19 12/16/19 History aspirin [Aspirin Low Dose] 81 mg PO DAILY 12/19/19 12/19/19 History escitalopram oxalate 5 mg PO DAILY 12/19/19 History metoprolol tartrate 25 mg PO DAILY 12/19/19 12/19/19 History omeprazole magnesium [Prilosec OTC] 20 mg PO BID 12/19/19 12/19/19 History Past Med/Surg History Medical History Acute otitis media Acute sinusitis Allergic rhinitis (Chronic) Anxiety (Chronic) Coronary artery disease (Chronic) Dizziness Dyslipidemia (Chronic) Ear pain Elevated blood-pressure reading without diagnosis of hypertension IBS (irritable bowel syndrome) (Chronic) Neck pain Ruptured tympanic membrane URI (upper respiratory infection) Vitamin D deficiency (Chronic) Surgical History History of hysterectomy Family History Daughter Breast cancer Mother Liver cancer Other Ulcerative colitis Denies family history of Ovarian cancer Prostate cancer Myocardial infarction Colorectal cancer Social History Preferred Language: Polish Communication Ability: Effective Lapel Padder Blindstitch Required: No Beliefs That Will Affect Care: None marital status: Current Living Situation: Family current occupational status: retired Other Information That Helps Us Care for You: No Feels Safe at Home: Yes Safety Concerns: Feels Safe At This Time Smoking Status: Unknown if ever smoked Hx Alcohol Use: No Hx Substance Use: No caffeine: No Dental Care, Regularly: Yes Physical Activity Frequency: 5-6 Times per Week Seatbelt Use: always Sunscreen Use: No Review of Systems Constitutional: no fever, no chills and no sweats Eyes: + blind spots, + spots in vision and + worsening vision; no loss of peripheral vision Ear, Nose, Mouth, Throat: + hearing loss (chronic); no tinnitus, no dizziness, no nasal discharge and no sore throat Respiratory: no cough and no dyspnea Cardiovascular: + palpitations; no chest pain, no lightheadedness and no syncope Gastrointestinal: no abdominal pain, no nausea, no vomiting, no constipation and no diarrhea/loose stools Genitourinary: no dysuria Musculoskeletal: no body aches Neurologic: no tingling, no numbness, no dizziness, no syncope, no headache(s) and no abnormal speech Psychiatric: + anxiety Physical Exam Physical Exam: General: Alert, oriented. No acute distress, sitting up in bed talking to daughter at bedside Skin: No noted rashes or bruises Psych: Appropriate mood and affect Neuro: right eye with decreased vision centrally, normal confrontation. Left eye with normal acuity and confrontation grossly. PERRLA, EOMI. Other CN grossly intact, strength 5/5 in UE and LE bilaterally. No facial droop, speech normal. HEENT: NC/AT, PERRLA, EOMI, oropharynx moist. Chest: Nontender to palpation. CV: RRR, Normal s1, s2. No murmurs appreciated Resp: Breath sounds clear bilaterally, no increased effort of breathing. No crackles/rhonchi/rales. Abdomen: Soft, nontender, nondistended. No guarding. No organomegaly appreciated. Extremities: No edema in lower extremities bilaterally. Results & Data Vital Signs (Past 12 Hours) Vital Signs Temp Pulse Pulse Resp BP BP Pulse Ox 12/19/19 23:02 73 23 220/97 H 97 12/19/19 23:00 66 16 99 12/19/19 22:33 71 14 96 12/19/19 22:32 72 18 175/100 H 99 12/19/19 22:30 73 20 100 12/19/19 22:10 81 19 97 12/19/19 22:09 86 20 137/103 H 97 12/19/19 22:06 96 12/19/19 21:32 73 12 98 12/19/19 21:31 72 14 195/108 H 98 12/19/19 21:30 74 14 97 12/19/19 21:02 70 14 98 12/19/19 21:01 74 12 169/94 H 99 12/19/19 21:00 72 11 L 98 12/19/19 20:32 79 18 98 12/19/19 20:31 83 17 192/108 H 97 12/19/19 20:30 85 22 98 12/19/19 20:27 82 18 210/90 H 96 12/19/19 20:13 78 19 12/19/19 20:12 79 18 209/103 H 12/19/19 20:11 79 19 12/19/19 19:33 75 18 210/86 H 100 12/19/19 19:31 79 17 205/93 H 100 12/19/19 19:30 76 21 100 12/19/19 19:12 70 13 99 12/19/19 19:11 69 20 182/90 H 99 12/19/19 19:10 69 14 182/90 H 99 12/19/19 17:25 36.6 C 79 20 210/86 H 99 Code Status & VTE Plan VTE Prophylaxis Plan VTE Prophylaxis will be ordered: Yes Supervising Physician Co-Signing Physician Notes Patient was seen and examined by me personally. I reviewed the chart, the orders and discussed the case in detail with Dr. María Krueger MD . I read this H&P and agree with its contents to entirety. Resident Activity Tracking Resident Involvement: Resident Care Provided Care Provided: Adult [facility] Medicine (1) Central retinal artery occlusion Laterality: right Qualified Code(s): H34.11 - Central retinal artery occlusion, right eye
[2019-12-20] MEDS ORDERED: HydrALAZINE 10 MG TAB PO ONE (00:36)
[2019-12-20] MEDS ORDERED: HydrALAZINE HCL 20 MG/ML VIAL IV PRN (06:02)
--- NOTE | 2019-12-20 06:02 | Billing Data ---
Date of Service December 19, 2019 Coding Level of Care Code 43647 OBS Care - Level 3
[2019-12-20 06:54] LABS: Basophils # (auto) 0.03 K/uL (0-0.2); Basophils % (auto) 0.4 %; Eosinophils # (auto) 0.14 K/uL (0-0.5); Eosinophils % (auto) 1.7 %; Hematocrit (blood only) 39.4 % (37-47); Hemoglobin 13.4 g/dL (12.0-16.0); Immature Granulocytes # (auto) 0.01 K/uL (0.00-0.02); Immature Granulocytes % (auto) 0.1 %; Lymphocytes # (auto) 2.91 K/uL (1.2-3.4); Lymphocytes % (auto) 34.4 %; Mean Corpuscular Hemoglobin 29.5 pg (25-34); Mean Corpuscular Volume 86.6 fL (80-100); Mean Platelet Volume 9.9 fL (7.4-10.4); Monocytes # (auto) 0.65 K/uL (0.11-0.59); Monocytes % (auto) 7.7 %; Neutrophils # (auto) 4.71 K/uL (1.4-6.5); Neutrophils % (auto) 55.7 %; Platelet Count 256 K/uL (130-400); RDW Standard Deviation 41.2 fL (36.4-46.3); Red Blood Count 4.55 M/uL (4.2-5.4); White Blood Count 8.45 K/uL (4.8-10.8)
[2019-12-20 07:21] LABS: BUN Creatinine Ratio 17.5 (10-20); Calcium 9.3 mg/dl (8.5-10.1); Creatinine Clr Calc Pharmacy 50.1 ml/min; Est GFR (African American) 92.3; Est GFR (Non-African American) 79.7; Potassium 3.8 mmol/L (3.5-5.1)
[2019-12-20] MEDS ORDERED: ENOXAPARIN INJ 40 MG/0.4 ML SYR SQ SCH (08:00)
[2019-12-20] MEDS ORDERED: ASPIRIN 81 MG ECTAB PO SCH (09:00)
[2019-12-20] MEDS ORDERED: SIMVASTATIN 20 MG TAB PO SCH (09:00)
[2019-12-20] MEDS ORDERED: PANTOprazole 40 MG TAB PO SCH (09:00)
[2019-12-20] MEDS ORDERED: METOPROLOL TARTRATE 25 MG TAB PO SCH (09:00)
--- NOTE | 2019-12-20 14:38 | Discharge Summary ---
Date of Service December 20, 2019 Admission HPI Per Admitting Provider Pt states she presented to the ED after seeing an revenue specialist in [place] today who diagnosed her with central artery retinal occlusion, and recommended she go the ED for workup. States she had been having periodic eye blurriness but 2 days ago, her right eye got darker. Denies any associated headaches, chest pain, SOB or palpitations. States she has a history of anxiety and associated palpitations for which she is on metoprolol but no hx of HTN. Denies = cough, runny nose, sore throat, dizziness, weakness, abdominal pain, diarrhea or constipation, swelling in hands or feet or numbness or tingling anywhere. PMHx: GERD, Anxiety, HLD Allergies: NKDA Fam Hx: sister with Hx of stroke Social Hx: . Never smoker, no alcohol or recreational drug use Admission Exam Per Admitting Provider General: Alert, oriented. No acute distress, sitting up in bed talking to daughter at bedside Skin: No noted rashes or bruises Psych: Appropriate mood and affect Neuro: right eye with decreased vision centrally, normal confrontation. Left eye with normal acuity and confrontation grossly. PERRLA, EOMI. Other CN grossly intact, strength 5/5 in UE and LE bilaterally. No facial droop, speech normal. HEENT: NC/AT, PERRLA, EOMI, oropharynx moist. Chest: Nontender to palpation. CV: RRR, Normal s1, s2. No murmurs appreciated Resp: Breath sounds clear bilaterally, no increased effort of breathing. No crackles/rhonchi/rales. Abdomen: Soft, nontender, nondistended. No guarding. No organomegaly appreciated. Extremities: No edema in lower extremities bilaterally. Principal Diagnosis Central Retinal Artery Occlusion Discharge Exam Constitutional WD/WN, vitals as above Eyes + anicteric sclerae, PERRL, normal accommodation and EOM intact bilaterally; no nystagmus Peripheral vision full b/l. Central vision on right sided reduced. ENMT external ear and nose normal, oropharynx normal Neck normal visual inspection and trachea midline Respiratory normal respiratory effort, lungs clear to auscultation Cardiovascular RRR, no murmur, no edema Heart Sounds: normal S1 and normal S2 Vessels: no carotid bruit Gastrointestinal (Abdomen) normal bowel sounds, soft, nontender, no hepatosplenomegaly Skin no rashes, warm and dry Neurologic Cranial nerves III-12 intact. Psychiatric A+Ox3, euthymic affect Discharge Data Allergies Allergy/AdvReac Type Severity Reaction Status Date / Time No Known Allergies Allergy Unknown Verified 12/16/19 14:31 Consultations 12/19/19 20:25 ED Decision to Admit Stat Ordered Studies 12/19/19 18:10 CT angio head w con Stat CT head/brain wo con Stat 12/19/19 18:11 CT angio neck with con Stat 12/20/19 12:09 MR brain wo con Routine Hospital Course (1) Central retinal artery occlusion: Mrs. Charlton is a 79yo F who was admitted for right central artery retinal occlusion workup. Central artery retinal occlusion Mrs. Charlton presented with impaired central vision in her right eye; peripheral vision preserved bilaterally. CTA of head and neck 12/19/19 showed moderate focal stenosis of the left vertebral artery and M2 branch of left MCA. No stenosis of common carotid, internal carotid, or ophthalmic artery noted. No hemorrhage or additional ischemic changes noted. Hospital team recommended a brain MRI to assess for additional ischemic changes, however Mrs. Charlton declined as she wished to "go home and pray on it first." EKG obtained showed normal sinus rhythm. Transthoracic echocardiogram showed no embolic source such as a thrombus, but did show mild LVH and grade I diastolic dysfunction. Lipid panel obtained showed elevated TG level 176, total cholesterol of 200, LDL of 118, HDL 47, ratio of 4. She was already taking Simvastatin 20mg - hospital team recommend she transition to Atorvastatin 40mg upon discharge for increased potency/plaque stabilization benefit. She was advised to continue her home daily baby aspirin. Outpatient items to do: consider brain MRI to evaluate for further ischemic dise ase. Consider Holter monitor for complete embolic work-up. Consider sleep study given diastolic dysfunction noted on echo. HTN Patient's BP was elevated on admission: systolic max 220; diastolic max 97. She was given one dose of 10mg hydralazine to lower her systolic pressure on admission. BP improved to 147/72 by the time of discharge. She reports typical good control of her pressures with her home dose of metoprolol 25mg, daily. Patient attributed elevated pressure to feeling anxious while in the hospital. No additional changes to her usual BP medication regimen were made. Outpatient items to do: recheck BP GERD -continue home omeprazole 20mg BID Total Time Total Time Spent Total Time Spent (In Minutes): see attending attestation Discharge Plan Discharge Items Patient Disposition: Home - Self-Care Reason For Visit: ACUTE RETINAL OCCLUSION Discharge Diagnosis: Central Retinal Artery Occulsion Condition on Discharge: Good Activity: Per Instructions section Activity Comment: Please refrain from driving until cleared by your opthalmolgist Non-emergency contact: Primary Care Provider and Ticket Broker Call non-emergency contact if: your symptoms worsen Follow-up/Referrals: Jaquelin Mcdonald CRNP [Primary Care Provider] - Diet: Regular Addtl Attending Provider Instructions: You were hospitalized at [facility] from 12/19/19-12/20/19 for a right sided clot in an artery that supplies your eye. This condition is known as Central Retinal Artery Occlusion. Vision out of your right eye was impaired during your hospital stay. A cat scan of your head and neck was performed which showed some narrowing of blood vessels in your brain. However, this narrowing is unlikely related to your vision problem. Instead, it is thought that a small clot or cholesterol plaque known as an embolus blocked the artery supplying your right eye. You were already taking simvastatin, a cholesterol lowering medication before coming to the hospital. We recommend you switch to atorvastatin, which is similar to simvastatin, but more potent. A prescription for atorvastatin was placed to your pharmacy for atorvastatin. Please start immediately after discharge. We recommend you continue to take your daily baby Aspirin. An echocardiogram of your heart was done while you were in the hospital - this study revealed no obvious clots in the heart that could have been responsible for your vision problem. We recommended your get a brain MRI before leaving the hospital, but you declined. Please follow up with your rotary furnace tender and your primary care provider within one week of discharge. Pending Studies at Discharge: No Stand-Alone Forms: My [facility], Smoking Cessation Medications and DC Order Prescriptions: New atorvastatin 40 mg tablet 40 mg PO DAILY Qty: 30 RF: 1 Continued lorazepam [Ativan] 0.5 mg tablet 0.5 mg BUCCAL Q6H PRN (Reason: Anxiety) RF: 0 aspirin [Aspirin Low Dose] 81 mg Tablet,Delayed Release (Dr/Ec) 81 mg PO DAILY RF: 0 Prilosec OTC 20 mg Tablet,Delayed Release (Dr/Ec) 20 mg PO BID RF: 0 metoprolol tartrate 25 mg tablet 25 mg PO DAILY RF: 0 escitalopram oxalate 5 mg tablet 5 mg PO DAILY RF: 0 Discontinued simvastatin 20 mg tablet 20 mg PO DAILY RF: 0 Discharge Orders: Discharge Order (Routine); Ordered 12/20/19 Ordered By: Manisha Rowley Admission Data Admit Date/Time: 12/19/19 23:13 Attending Provider: Maame Krishnan Admit Provider: María Krueger Primary Care Provider: Jaquelin Mcdonald Other Providers: Shiv Xiao Other Interventions: Discharge Summary Assessment (RN) Last Done: 12/20/19 14:44 DC Date/Time DO NOT enter until pt leaves facility: 12/20/19 15:13 Supervising Physician Co-Signing Physician Notes Resident Physician Supervision Note: I independently interviewed and examined the patient and verified the saunders history and physical, reviewed labs and image studies, discussed the case with the resident Dr. Rowley and agree with the findings and care plan. Resident Activity Tracking Resident Involvement: Resident Care Provided Care Provided: Adult Hospital Medicine
--- NOTE | 2019-12-20 19:36 | Electrocardiogram Report ---
Test Reason : Blood Pressure : / mmHG Vent. Rate : 070 BPM Atrial Rate : 070 BPM P-R Int : 160 ms QRS Dur : 094 ms QT Int : 406 ms P-R-T Axes : 047 009 076 degrees QTc Int : 438 ms Normal sinus rhythm Nonspecific ST and T wave abnormality Abnormal ECG When compared with ECG of 12-OCT-2009 07:10, Premature ventricular complexes are no longer Present T wave inversion no longer evident in Inferior leads T wave inversion no longer evident in Anterolateral leads QT has shortened Confirmed by Anshu Williamson ([id number]) on 12/20/2019 7:35:54 PM Referred By: Moris Millan Confirmed By:Anshu Williamson
== END 2019-12-20 15:13 | disposition home or self-care (01) ==
LOC: ED 17:17 → 3E 17:17 → SUATTDRO 23:13 → 3E 12-20 00:16